=== PATIENT | female | born 1965 | race Caucasian/White ===

== ENCOUNTER 2023-02-05 17:15 | Emergency (ER) | payer OTHER ==
[~2023-02-05] VITALS: Ht 154.9 cm; Wt 72.6 kg
== END 2023-02-05 17:30 | disposition home or self-care (01) ==
LOC: ER 17:15
DX: T16.2XXA Foreign body in left ear, initial encounter (principal); X58.XXXA Exposure to other specified factors, initial encounter
CPT/HCPCS: 69200; 99282-25

== ENCOUNTER 2023-02-16 12:41 | Emergency (ER) | payer OTHER ==
[~2023-02-16] VITALS: Ht 154.9 cm; Wt 72.6 kg
== END 2023-02-16 14:49 | disposition home or self-care (01) ==
LOC: ER 12:41
DX: S81.811A Laceration without foreign body, right lower leg, initial encounter (principal); W22.8XXA Striking against or struck by other objects, initial encounter; Z23 Encounter for immunization
CPT/HCPCS: 12004; 99282-25